=== PATIENT | male | born 1985 | race Caucasian/White ===

== ENCOUNTER 2020-03-05 16:54 | Outpatient (REF) | payer OTHER, SELFPAY | END 2020-03-05 16:55 | disposition home or self-care (01) | LOC: HO.LAB 16:54 | PROVIDERS: PCP Internal Medicine; Visit Provider Internal Medicine | DX: Z20.822 Contact with and (suspected) exposure to COVID-19 (principal) | CPT/HCPCS: 36415; C9803; U0003 ==

== ENCOUNTER 2020-03-16 15:34 | Outpatient (REF) | payer OTHER, SELFPAY | END 2020-03-16 15:35 | disposition home or self-care (01) | LOC: HO.LAB 15:34 | PROVIDERS: Visit Provider Internal Medicine | DX: Z20.822 Contact with and (suspected) exposure to COVID-19 (principal) | CPT/HCPCS: 36415; C9803; U0003 ==

== ENCOUNTER 2023-02-02 08:47 | Outpatient (AMB) | payer OTHER, SELFPAY ==
--- NOTE | 2023-02-02 08:50 | MHC.PC.OV ---
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 Accompanied by: Self / Same As Patient Allergies No Known Allergies Allergy (Verified 02/02/23 08:51) Medication List - Last Reconciled 02/02/23 by Ruth Ann Gaffney MD No Known Home Meds Tobacco use date assessed: 02/02/23 Dental Screening Dental Screen Date: 02/02/23 Did you have a dental visit in the last 12 months?: Yes Did you have a dental problem in the last 6 months where you did not have access to dental care?: No Was dental information given to patient?: Patient has dentist HPI Annual Physical HPI Details 37-year-old overweight male with ADD, generalized anxiety disorder and anemia last seen in March 2021 coming in for physical exam. states gets bronchitis Q year [facility] Medical History (Updated 02/02/23 @ 09:18 by Ruth Ann Gaffney MD) Leukopenia Attention deficit disorder Fatty liver Obesity (BMI 30-39.9) Generalized anxiety disorder Surgical History History of knee surgery Family History Mother Breast cancer Skin cancer Father No problems noted. Brother No problems noted. Brother Substance abuse Brother No problems noted. Sister No problems noted. Social History Housing: House Alcohol intake: never Patient Tobacco Use Status: Former Tobacco user Tobacco use type: Cigarette Years Smoked: 2003 e-Cigarette/Vaping Use: Never Used Second Hand Smoke Exposure: No service: No Current occupational status: employed Cognitive needs: No Hearing needs: No Vision needs: No Questionnaire PHQ-9 Over the last 2 weeks, how often have you been bothered by any of the following problems? 1. Little interest or pleasure in doing things: several days 2. Feeling down, depressed, or hopeless: several days 3. Trouble falling or staying asleep, or sleeping too much: more than half the days 4. Feeling tired or having little energy: not at all 5. Poor appetite or overeating: nearly every day 6. Feeling bad about yourself - or that you are a failure or have let yourself or your family down: more than half the days 7. Trouble concentrating on things, such as reading the newspaper or watching television: nearly every day 8. Moving or speaking so slowly that other people could have noticed. Or the opposite - being so fidgety or restless that you have been moving around a lot more than usual: more than half the days 9. Thoughts that you would be better off or of hurting yourself in some way: more than half the days Total score: 16 84002 - PHQ-9 Billing: Yes Source: Developed by Drs. Dejon Donohue, Jennifer Choi, Daniel Irene and colleagues, with an educational kimberly from [employer]. Thrive Questionnaire Date Thrive assessed: 02/02/23 What is your living situation today?: I have a steady place to live Within the past 12 months, did the food you bought not last and you didn't have the money to get more?: Never true Within the past 12 months, did you worry whether your food would run out before you got money to buy more?: Never true Do you have trouble paying for medicines?: No Do you have trouble getting transportation to medical appointments?: No Do you have trouble paying your heating and electricity bill?: No Do you have trouble taking care of your child, family member or friend?: No Do you have trouble with day-to-day activities such as bathing, preparing meals, shopping, managing finances, etc.?: No Are you currently unemployed and looking for a job?: No Are you interested in more education?: No Please select the resources that you would like help with: None Currently or been in a relationship where the following occur: no concerns reported AUDIT C Alcohol Use Questionnaire (AUDIT-C) 1. How often do you have a drink containing alcohol?: Never 3. How often do you have six or more drinks on one occasion?: Never Total Score: 0 CHRISTINA-7 AMB Questionnaire CHRISTINA-7 Date CHRISTINA - 7 assessed: 02/02/23 Feeling nervous, anxious, or on edge: 1 = Several days Not being able to stop or control worryin = Several days Worrying too much about different things: 1 = Several days Trouble relaxin = Several days Being so restless that it is hard to sit still: 1 = Several days Becoming easily annoyed or irritable: 1 = Several days Feeling afraid as if something awful might happen: 1 = Several days Total CHRISTINA-7 score (0-4 normal; 5-9 mild; 10-14 moderate; 15-21 severe): 7 Source: Developed by Drs. Dejon Donohue, Jennifer Choi, Daniel Irene and colleagues, with an educational kimberly from [employer]. CHRISTINA-7 Assessment Billing CHRISTINA-7 Assessment Tool: CHRISTINA-7 Assessment 75375 Review of Systems Const Denies poor appetite and Denies weakness Eyes Denies no additional complaints ENT Reports Normal hearing present, Denies dizziness, Denies nasal congestion, Denies tinnitus and Denies sore throat Card Denies chest pain, Denies syncope, Denies rapid heart rate and Denies dyspnea Resp Denies cough and Denies dyspnea GI Denies change in stool character, Reports constipation, Denies diarrhea, Denies nausea and Denies vomiting Denies dysuria and Denies urinary frequency Neuro Reports Normal hearing present, Denies confusion, Denies dizziness, Denies syncope and Denies weakness Psych Denies confusion Physical exam (Primary Care) Vital Signs: Last Vital Signs Pulse 51 02/02/23 08:51 BP 120/86 02/02/23 08:51 Pulse Ox 99 02/02/23 08:51 Oxygen Delivery Method Room Air 02/02/23 08:51 BMI result Body Mass Index 28.6 Tobacco/Smoking Status: Tobacco use Status Tobacco use date assessed 02/02/23 02/02/23 08:52 Patient Tobacco Use Status Former Tobacco user 02/02/23 08:52 Tobacco use type Cigarette 02/02/23 08:52 e-Cigarette/Vaping Use Never Used 02/02/23 08:52 PHQ-9: PHQ-9 Score PHQ-9: Total score 16 02/02/23 09:06 Thrive Assessment: Date of Thrive Assessment Date Thrive assessed 02/02/23 02/02/23 09:01 Currently or been in a relationship where the following occur: no concerns reported Const General: alert and awake; No confusion Orientation/consciousness: No confusion HENMT Head: Yes normocephalic Ears: external ears normal and TM's normal bilaterally Face and sinus: Yes normal facial exam Mouth: moist mucous membranes Throat: Yes tonsils normal Eyes Conjunctivae: conjunctivae normal Pupils: Equal, round and reactive pupils present and Pupil accommodation reflex normal Direct Ophthalmoscopy: normal light reflex Neck Neck: No lymphadenopathy Thyroid: Thyroid normal Chest Chest palpation & inspection: normal inspection of the chest Resp Effort & Inspection: normal respiratory effort and no audible wheezes Auscultation: clear to auscultation bilaterally, no crackles, no wheezes and lung sounds not diminished Cardio Rate: regular rate Rhythm: regular rhythm Peripheral pulses: radial pulses present and dorsalis pedis present GI Other: visual negative for any hemorrhoids Palpation (GI): no masses Auscultation: normal bowel sounds and normoactive bowel sounds Rectal Exam - Male: Yes deferred Male General Exam: Yes normal external exam Skin General skin exam: no rashes or lesions noted Rashes: no rashes Neuro General: deep tendon reflexes 2+ bilaterally and No confusion Cranial nerves: Yes Equal, round and reactive pupils present, Yes Midline tongue present, Yes Normal hearing present and Yes Ability to bilaterally elevate shoulders present Cognition (Neuro): normal cognition Gait exam (Neuro): Normal gait present Motor exam (neuro): 5/5 motor strength present throughout Deep tendon reflexes (DTR's): Right brachioradialis reflex intensity grade: 2+, Left brachioradialis reflex intensity grade: 2+, Right patellar reflex intensity grade: 2+ and Left patellar reflex intensity grade: 2+ Extrem General: No edema Office Procedures Flu Questionnaire Does the patient have a severe egg allergy?: No Does the patient have severe life threatening allergies?: No Does the patient have a fever or illness today?: No Has the patient ever had Guillain-Needham Syndrome?: No Has the patient ever had any past reaction to a flu shot?: No Immunizations flu vacc [id number] 6mos up(PF) 60 mcg(15 mcgx4)/0.5 mL IM syringe Performing Provider: Ruth Ann Gaffney MD [facility] Administered by: Marilynn Iglesias CMA on 02/02/23 09:27 Dose Route Admin Location Dispensed Lot Number Expiration Date [employer] 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 0.5 mL IM Left Deltoid 0.5 mL [id number] 08/16/23 [id number] [facility] VIS Given Date VIS Provided VIS Publication Date 02/02/23 Single Vaccine 20 Eligibility Eligibility Date Funding Source Not [facility] Eligible 02/02/23 Private Assessment and Plan Assessment & Plan (1) Annual physical exam: Code(s): Z00.00 - Encounter for general adult medical examination without abnormal findings (2) Overweight: Code(s): E66.3 - Overweight Plan: Diet and exercise (3) Anemia: Code(s): D64.9 - Anemia, unspecified Qualifiers: Anemia type: unspecified type Qualified Code(s): D64.9 - Anemia, unspecified Plan: Discussed about repeating the blood work (4) Attention deficit disorder: Comment: [facility] 07/26/2018 Code(s): F98.8 - Other specified behavioral and emotional disorders with onset usually occurring in childhood and adolescence Plan: Continue to follow-up with counseling and therapy (5) Fatty liver: Code(s): K76.0 - Fatty (change of) liver, not elsewhere classified Plan: Low-fat diet and exercise (6) Generalized anxiety disorder: Comment: [facility] therapy September 2019 Code(s): F41.1 - Generalized anxiety disorder Plan: Continue to follow-up with counseling and therapy (7) GERD (gastroesophageal reflux disease): Code(s): K21.9 - Gastro-esophageal reflux disease without esophagitis Plan: Avoid the foods that causes that usually spicy foods, tomato products, juices, coffee, soda and foods that your sensitive to. After eating do not lie down, allow 3-4 hours before in lie down. And keep the head of bed above 30 degrees to avoid the acid from going up. (8) Rectal bleed: Code(s): K62.5 - Hemorrhage of anus and rectum Plan: ? wiping too hard, deny constipation- sent in proctosol Orders: Orders Complete Blood Count Auto Diff Today D64.9 - Anemia, unspecified Reticulocyte Count Today D64.9 - Anemia, unspecified IRON PROFILE Today D64.9 - Anemia, unspecified Comprehensive Met. Panel Today K76.0 - Fatty (change of) liver, not elsewhere classified Free T4 (Free Thyroxine) Today K76.0 - Fatty (change of) liver, not elsewhere classified Thyroid Stimulating Hormone Today K76.0 - Fatty (change of) liver, not elsewhere classified Influenza [id number] Immunization Today Z23 - Encounter for immunization Ferritin Today D64.9 - Anemia, unspecified Vitamin B12 and Folate Today D64.9 - Anemia, unspecified Lipid Panel Today E78.00 - Pure hypercholesterolemia, unspecified, K76.0 - Fatty (change of) liver, not elsewhere classified Medications: New hydrocortisone 2.5% (Proctosol HC) 1 appl [place] BID-QID PRN 30 grams 0RF hemorrhoids K62.5 - Hemorrhage of anus and rectum Coding Level of Care Code Est Pt Prev Care 18-39y(25421) Diagnoses Annual physical exam Z00.00 Overweight E66.3 Anemia, unspecified type D64.9 Anemia type: unspecified type Attention deficit disorder F98.8 Fatty liver K76.0 Generalized anxiety disorder F41.1 GERD (gastroesophageal reflux disease) K21.9 Rectal bleed K62.5 Additional Codes CHRISTINA-7 Assessment Billing - CHRISTINA-7 Assessment Tool: CHRISTINA-7 Assessment 19067 ([id number])
[2023-02-02 08:51] VITALS: BP 120/86; PULSE 51; O2SAT 99; BMI 28.6
== END 2023-02-02 09:29 | disposition home or self-care (01) ==
PROVIDERS: PCP Internal Medicine; Visit Provider Internal Medicine
DX: Z00.00 Encounter for general adult medical examination without abnormal findings (principal); E66.3 Overweight; D64.9 Anemia, unspecified; Z23 Encounter for immunization; F98.8 Other specified behavioral and emotional disorders with onset usually occurring in childhood and adolescence; K76.0 Fatty (change of) liver, not elsewhere classified; F41.1 Generalized anxiety disorder; K21.9 Gastro-esophageal reflux disease without esophagitis; K62.5 Hemorrhage of anus and rectum
CPT/HCPCS: 90471; 90686; 96127; 99395

== ENCOUNTER 2023-03-19 15:02 | Outpatient (REF) | payer OTHER, SELFPAY ==
[2023-03-19 15:12] LABS: MANUAL DIFF FLAG NO
[2023-03-19 15:32] LABS: Basophils Absolute Auto 0.1 X10*3/uL (0.0-0.2); Basophils Percent Auto 1.3 % (0-2); Eosinophils Percent Auto 0.8 % (0-4); Hematocrit 37.4 % (42.0-52.0); Hemoglobin 12.9 g/dl (14.0-18.0); Imm Gran Abs Auto 0.01 X10*3/uL (0.00-0.03); Imm Gran Pct Auto 0.2 % (0.0-0.4); Immature Retic Fraction 4.7 % (2.3-13.4); Lymphocytes Absolute Auto 1.4 X10*3/uL (1.2-4.9); Lymphocytes Percent Auto 29.7 % (20-40); Mean Corpuscular HGB Conc 34.5 g/dl (31.0-36.0); Mean Corpuscular Hemoglobin 28.9 pg (27.0-33.0); Mean Corpuscular Volume 83.7 fL (80.0-98.0); Mean Platelet Volume 9.7 fL (9.4-12.4); Monocytes Absolute Auto 0.5 X10*3/uL (0.1-1.2); Monocytes Percent Auto 11.2 % (2-11); Neutrophils Absolute Auto 2.7 x10*3/uL (2.0-8.3); Neutrophils Percent Auto 56.8 % (45-73); Platelet Count 293 X10*3/uL (160-400); Red Blood Count 4.47 X10*6/uL (4.60-5.80); Red Cell Distribution Width 12.8 % (11.0-16.0); Retic HGB Equivalent 32.7 pg (30.0-35.0); Reticulocyte Percent 1.1 % (0.5-1.8); White Blood Count 4.7 X10*3/uL (4.8-10.8)
[2023-03-19 15:59] LABS: Alanine Aminotransferase 13 U/L (0-40); Albumin Level 4.5 g/dL (3.5-5.0); Alkaline Phosphatase 53 U/L (39-117); Anion Gap 10 (12-20); Aspartate Amino Transferase 17 U/L (5-37); Bilirubin Total 0.4 mg/dL (0.0-1.0); Blood Urea Nitrogen 15 mg/dL (9-16); Calcium 9.2 mg/dL (8.4-10.2); Carbon Dioxide 31 mmol/L (22-29); Chloride 103 mmol/L (96-108); Cholesterol 184 mg/dL (<200); Estimated Glomerular Filt Rate > 60; Glucose Random 84 mg/dL (60-115); HDL Cholesterol 56 mg/dL (>40); Iron 81 mcg/dL (45-160); LDL Cholesterol Calculated 121 mg/dL (<100); Percent Iron Saturation 30 % (15-50); Potassium 3.9 mmol/L (3.3-5.1); Sodium 140 mmol/L (135-145); Total Iron Binding Capacity 270 mcg/dL (228-428); Total Protein 7.3 g/dL (6.5-8.0); Triglycerides 35 mg/dL (<150); Unsaturated Iron Binding 189 ug/dL
[2023-03-19 16:14] LABS: Ferritin 99 ng/mL (20-250); Thyroid Stimulating Hormone 0.78 uIU/mL (0.32-4.0)
[2023-03-19 16:27] LABS: Folate 6.7 ng/mL (> or = 4.0); Vitamin B12 416 pg/mL (200-900)
== END 2023-03-19 15:03 | disposition home or self-care (01) ==
LOC: HO.LAB 15:02
PROVIDERS: PCP Internal Medicine; Visit Provider Internal Medicine
DX: D64.9 Anemia, unspecified (principal); K76.0 Fatty (change of) liver, not elsewhere classified; E78.00 Pure hypercholesterolemia, unspecified
CPT/HCPCS: 36415; 80053; 80061; 82607; 82728; 82746; 83540; 84439; 84443; 85025; 85045

== ENCOUNTER → 2023-04-15 11:22 | Outpatient (BNV) | payer OTHER, SELFPAY | PROVIDERS: PCP Internal Medicine; Referring Provider Internal Medicine; Visit Provider Internal Medicine Medical Oncology | DX: D64.9 Anemia, unspecified (principal) | CPT/HCPCS: 99204; 99213 ==

== ENCOUNTER 2023-05-07 15:34 | Outpatient (AMB) | payer OTHER, SELFPAY ==
[2023-05-07 15:38] VITALS: BP 122/64; PULSE 50; O2SAT 99; BMI 29.2
--- NOTE | 2023-05-07 15:38 | MHC.PC.OV ---
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 Last seen in January 2023. With anemia patient was referred to Hematology Oncology diagnosis of normochromic normocytic anemia most likely anemia of chronic disease. 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 [facility] Medical History (Updated 05/07/23 @ 15:50 by Ruth Ann Gaffney MD) Anemia Leukopenia Attention deficit disorder Fatty liver Obesity (BMI 30-39.9) Generalized anxiety disorder Surgical History (Updated 04/15/23 @ 16:35 by Natasha Burton MD) History of knee surgery Family History Mother Breast cancer Skin cancer Father No problems noted. Brother No problems noted. Brother Substance abuse Brother No problems noted. Sister No problems noted. Social History (Updated 04/15/23 @ 13:47 by Yahaira Palomares) Housing: House Alcohol intake: never Patient Tobacco Use Status: Former Tobacco user Tobacco use type: Cigarette Years Smoked: 2003 e-Cigarette/Vaping Use: Never Used Second Hand Smoke Exposure: No service: No Current occupational status: employed Cognitive needs: No Hearing needs: No Vision needs: No Questionnaire Thrive Questionnaire Date Thrive assessed: 05/07/23 AUDIT C Alcohol Use Questionnaire (AUDIT-C) 1. How often do you have a drink containing alcohol?: Never 3. How often do you have six or more drinks on one occasion?: Never Total Score: 0 CHRISTINA-7 AMB Questionnaire CHRISTINA-7 Date CHRISTINA - 7 assessed: 05/07/23 Source: Developed by Drs. Dejon Donohue, Jennifer Choi, Daniel Irene and colleagues, with an educational kimberly from [address]. Physical exam (Primary Care) Vital Signs: Last Vital Signs Pulse 50 05/07/23 15:38 BP 122/64 05/07/23 15:38 Pulse Ox 99 05/07/23 15:38 Oxygen Delivery Method Room Air 05/07/23 15:38 Care Plan Goal for BP management: Rectal area noted has subcentimeter mass no active bleeding. No tenderness BMI result Body Mass Index 29.2 Tobacco/Smoking Status: Tobacco use Status Tobacco use date assessed 05/07/23 05/07/23 15:39 Patient Tobacco Use Status Former Tobacco user 05/07/23 15:39 Tobacco use type Cigarette 05/07/23 15:39 e-Cigarette/Vaping Use Never Used 05/07/23 15:39 Thrive Assessment: Date of Thrive Assessment Date Thrive assessed 05/07/23 05/07/23 15:39 Const General: alert; No acute distress Eyes Conjunctivae: conjunctivae normal Resp Auscultation: clear to auscultation bilaterally Cardio Rate: regular rate Rhythm: regular rhythm GI Inspection: Yes normal to inspection Extrem General: Yes normal to inspection and No edema Assessment and Plan Assessment & Plan (1) Normochromic normocytic anemia: Code(s): D64.9 - Anemia, unspecified Plan: Patient has met with Hematology-Oncology. Will continue to monitor. (2) Rectal bleed: Code(s): K62.5 - Hemorrhage of anus and rectum Plan: Use the hemorrhoid cream Proctosol. Will resend (3) GERD (gastroesophageal reflux disease): Code(s): K21.9 - Gastro-esophageal reflux disease without esophagitis Plan: Avoid the foods that causes that usually spicy foods, tomato products, juices, coffee, soda and foods that your sensitive to. After eating do not lie down, allow 3-4 hours before in lie down. And keep the head of bed above 30 degrees to avoid the acid from going up. (4) Generalized anxiety disorder: Comment: [facility] therapy September 2019 Code(s): F41.1 - Generalized anxiety disorder Plan: Continue with counseling. (5) Hemorrhoid: Code(s): K64.9 - Unspecified hemorrhoids Plan: Hemorrhoid cream sent and advised to prevent being constipated. (6) Constipation: Code(s): K59.00 - Constipation, unspecified Plan: Fiber capsule sent. Three rules for constipation 1. Diet need to have a high fiber diet less of meat 2. Increase oral fluids 3. Exercise Medications: New psyllium husk (Fiber Therapy Laxative (psyllium husk)) 1.04 grams (2 x 0.52 gram) PO DAILY 60 caps 2RF K59.00 - Constipation, unspecified Refilled hydrocortisone 2.5% (Proctosol HC) 1 appl ID BID-QID PRN 30 grams 0RF hemorrhoids K62.5 - Hemorrhage of anus and rectum Coding Level of Care Code Est Pt Level 4 (92837) Diagnoses Normochromic normocytic anemia D64.9 Rectal bleed K62.5 GERD (gastroesophageal reflux disease) K21.9 Generalized anxiety disorder F41.1 Hemorrhoid K64.9 Constipation K59.00
== END 2023-05-07 15:56 | disposition home or self-care (01) ==
PROVIDERS: PCP Internal Medicine; Visit Provider Internal Medicine
DX: D64.9 Anemia, unspecified (principal); K62.5 Hemorrhage of anus and rectum; K21.9 Gastro-esophageal reflux disease without esophagitis; F41.1 Generalized anxiety disorder; K64.9 Unspecified hemorrhoids; K59.00 Constipation, unspecified
CPT/HCPCS: 99214

== ENCOUNTER 2023-08-31 15:21 | Outpatient (AMB) | payer BC, SELFPAY ==
[2023-08-31 15:25] VITALS: BP 122/70; PULSE 54; O2SAT 98; BMI 29.0
--- NOTE | 2023-08-31 15:25 | MHC.PC.OV ---
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 With the anemia patient continues to follow-up with Hematology-Oncology blood work has been in the normal range. Patient is doing good and states constipation has resolved and no more blood in the stools discussed about healthy diet more fiber less meat proteins not fried. [facility] Medical History (Updated 06/25/23 @ 14:08 by Natasha Burton MD) Anemia Leukopenia Attention deficit disorder Fatty liver Obesity (BMI 30-39.9) Generalized anxiety disorder Surgical History History of knee surgery Family History Mother Breast cancer Skin cancer Father No problems noted. Brother No problems noted. Brother Substance abuse Brother No problems noted. Sister No problems noted. Social History Housing: House Alcohol intake: never Patient Tobacco Use Status: Former Tobacco user Tobacco use type: Cigarette Years Smoked: 2003 e-Cigarette/Vaping Use: Never Used Second Hand Smoke Exposure: No service: No Current occupational status: employed Cognitive needs: No Hearing needs: No Vision needs: No Questionnaire PHQ-9 Over the last 2 weeks, how often have you been bothered by any of the following problems? 1. Little interest or pleasure in doing things: several days 2. Feeling down, depressed, or hopeless: several days 3. Trouble falling or staying asleep, or sleeping too much: more than half the days 4. Feeling tired or having little energy: not at all 5. Poor appetite or overeating: nearly every day 6. Feeling bad about yourself - or that you are a failure or have let yourself or your family down: more than half the days 7. Trouble concentrating on things, such as reading the newspaper or watching television: nearly every day 8. Moving or speaking so slowly that other people could have noticed. Or the opposite - being so fidgety or restless that you have been moving around a lot more than usual: more than half the days 9. Thoughts that you would be better off or of hurting yourself in some way: more than half the days Total score: 16 54751 - PHQ-9 Billing: Yes Source: Developed by Drs. Dejon Donohue, Jennifer Choi, Daniel Irene and colleagues, with an educational kimberly from [employer]. Thrive Questionnaire Date Thrive assessed: 05/07/23 AUDIT C Alcohol Use Questionnaire (AUDIT-C) 1. How often do you have a drink containing alcohol?: Never 3. How often do you have six or more drinks on one occasion?: Never Total Score: 0 CHRISTINA-7 AMB Questionnaire CHRISTINA-7 Date CHRISTINA - 7 assessed: 05/07/23 Source: Developed by Drs. Dejon Donohue, Jennifer Choi, Daniel Irene and colleagues, with an educational kimberly from [employer]. Physical exam (Primary Care) Vital Signs: Last Vital Signs Pulse 54 08/31/23 15:25 BP 122/70 08/31/23 15:25 Pulse Ox 98 08/31/23 15:25 Oxygen Delivery Method Room Air 08/31/23 15:25 BMI result Body Mass Index 29.0 Tobacco/Smoking Status: Tobacco use Status Tobacco use date assessed 05/07/23 08/31/23 15:26 Patient Tobacco Use Status Former Tobacco user 08/31/23 15:26 Tobacco use type Cigarette 08/31/23 15:26 e-Cigarette/Vaping Use Never Used 08/31/23 15:26 PHQ-9: PHQ-9 Score PHQ-9: Total score 16 08/31/23 15:26 Thrive Assessment: Date of Thrive Assessment Date Thrive assessed 05/07/23 08/31/23 15:26 Const General: alert; No acute distress Eyes Conjunctivae: conjunctivae normal Resp Auscultation: clear to auscultation bilaterally Cardio Rate: regular rate Rhythm: regular rhythm GI Inspection: Yes normal to inspection Extrem General: Yes normal to inspection and No edema Assessment and Plan Assessment & Plan (1) Constipation: Code(s): K59.00 - Constipation, unspecified Plan: Three rules for constipation 1. Diet need to have a high fiber diet less of meat 2. Increase oral fluids 3. Exercise states resolved (2) Hemorrhoid: Code(s): K64.9 - Unspecified hemorrhoids Plan: Patient was given fiber to help with constipation- resolved (3) Normochromic normocytic anemia: Code(s): D64.9 - Anemia, unspecified Plan: Resolved (4) GERD (gastroesophageal reflux disease): Code(s): K21.9 - Gastro-esophageal reflux disease without esophagitis Plan: Avoid the foods that causes that usually spicy foods, tomato products, juices, coffee, soda and foods that your sensitive to. After eating do not lie down, allow 3-4 hours before in lie down. And keep the head of bed above 30 degrees to avoid the acid from going up. (5) Overweight: Code(s): E66.3 - Overweight Plan: Diet and exercise (6) Generalized anxiety disorder: Comment: [facility] therapy September 2019 Code(s): F41.1 - Generalized anxiety disorder Plan: Stable Coding Level of Care Code Est Pt Level 4 (91673) Diagnoses Constipation K59.00 Hemorrhoid K64.9 Normochromic normocytic anemia D64.9 GERD (gastroesophageal reflux disease) K21.9 Overweight E66.3 Generalized anxiety disorder F41.1
== END 2023-08-31 16:09 | disposition home or self-care (01) ==
PROVIDERS: PCP Internal Medicine; Visit Provider Internal Medicine
DX: K59.00 Constipation, unspecified (principal); K64.9 Unspecified hemorrhoids; D64.9 Anemia, unspecified; K21.9 Gastro-esophageal reflux disease without esophagitis; E66.3 Overweight; F41.1 Generalized anxiety disorder
CPT/HCPCS: 99214

== ENCOUNTER 2024-02-04 16:04 | Outpatient (AMB) | payer BC, SELFPAY ==
--- NOTE | 2024-02-04 16:07 | MHC.PC.OV ---
Vital Signs 02/04/24 16:08 Height 5 ft 8 in Weight 198 lb 6 oz BMI 30.2 BP 118/60 Blood Pressure Location Lt brachial Position Sitting Pulse 56 Pulse Source Pulse Oximeter Pulse Oximetry (%) 96 Oxygen Delivery Method Room Air Intake Visit Reasons: Annual Exam Intake Note: Patient is here today for a physical. Photographic Plate Maker Required: No Chief Executive Officer: Not Required per policy Accompanied by: Self / Same As Patient Allergies No Known Allergies Allergy (Verified 02/04/24 16:08) Medication List - Last Reconciled 02/04/24 by Ruth Ann Gaffney MD hydrocortisone 2.5% (Proctosol HC) 1 appl ND BID-QID PRN psyllium husk (Fiber Therapy Laxative (psyllium husk)) 1.04 grams (2 x 0.52 gram) PO DAILY Tobacco use date assessed: 02/04/24 Dental Screening Dental Screen Date: 05/07/23 [facility] Annual Exam HPI Details The patient is a 38-year-old male presenting for a routine physical examination. He has a history of depression and previously diagnosed fatty liver. The patient reports that his depression is attributed to childhood trauma. He is currently seeing a counselor regularly but mentions that his ability to manage his depression is limited by the copayment required for sessions. He describes ongoing struggles with his condition but attempts to manage it through therapy. He reports no issues with dizziness, nausea, vomiting, passing out, chest pains, or unusual bowel or urinary symptoms. He experiences heartburn occasionally when overeating. The patient has gained seven pounds since the last visit, which took place in August. This weight gain is a concern due to the associated increase in his body mass index, especially given his history of fatty liver. He reports a healthy lifestyle, including daily exercise. He denies the use of tobacco, alcohol, or recreational drugs. There is no mention of medications, either prescription or [id number]. The patient's dietary habits and interventions to promote better health, like hydration and maintaining an active lifestyle, were discussed but not detailed. - Discussed weight management strategies due to increased BMI and history of fatty liver - Discussed getting an annual flu vaccination, though not administered in the visit - Exercise: Attempts to exercise daily - Substance Use: Denies smoking, alcohol, and recreational drug use - Family Status: Mentioned family history in terms of mother requiring care - Gastrointestinal: Reports occasional heartburn when overeating - Constitutional: Denies dizziness, nausea, vomiting, passing out - Respiratory: Denies any shortness of breath or chest pains - Genitourinary: Denies abnormal urinary symptoms; wakes no times at night to urinate [facility] Medical History (Updated 02/04/24 @ 16:43 by Ruth Ann Gaffney MD) Anemia Leukopenia Attention deficit disorder Fatty liver Obesity (BMI 30-39.9) Generalized anxiety disorder Surgical History History of knee surgery Family History Mother Breast cancer Skin cancer Father No problems noted. Brother No problems noted. Brother Substance abuse Brother No problems noted. Sister No problems noted. Social History Housing: House Alcohol intake: never Patient Tobacco Use Status: Former Tobacco user Tobacco use type: Cigarette Years Smoked: 2003 e-Cigarette/Vaping Use: Never Used Second Hand Smoke Exposure: Yes service: No Current occupational status: employed Cognitive needs: No Hearing needs: No Vision needs: No Questionnaire PHQ-9 Over the last 2 weeks, how often have you been bothered by any of the following problems? 1. Little interest or pleasure in doing things: several days 2. Feeling down, depressed, or hopeless: several days 3. Trouble falling or staying asleep, or sleeping too much: several days 4. Feeling tired or having little energy: not at all 5. Poor appetite or overeating: nearly every day 6. Feeling bad about yourself - or that you are a failure or have let yourself or your family down: more than half the days 7. Trouble concentrating on things, such as reading the newspaper or watching television: several days 8. Moving or speaking so slowly that other people could have noticed. Or the opposite - being so fidgety or restless that you have been moving around a lot more than usual: more than half the days 9. Thoughts that you would be better off or of hurting yourself in some way: several days Total score: 12 Depression Screening Interpretation: Positive Depression Screening Done: Yes Source: Developed by Drs. Jennifer Elizabeth, Daniel Irene and colleagues, with an educational kimberly from [employer]. Thrive Questionnaire Date Thrive assessed: 02/04/24 I am a: Patient What is your living situation today?: I have a steady place to live Within the past 12 months, did the food you bought not last and you didn't have the money to get more?: Never true Within the past 12 months, did you worry whether your food would run out before you got money to buy more?: Never true Do you have trouble paying for medicines?: No Do you have trouble getting transportation to medical appointments?: No Do you have trouble paying your heating and electricity bill?: No Do you have trouble taking care of your child, family member or friend?: No Do you have trouble with day-to-day activities such as bathing, preparing meals, shopping, managing finances, etc.?: No Are you currently unemployed and looking for a job?: No Are you interested in more education?: Yes Please select the resources that you would like help with: None Currently or been in a relationship where the following occur: No concerns reported THRIVE Score: 0 AUDIT C Alcohol Use Questionnaire (AUDIT-C) 1. How often do you have a drink containing alcohol?: Never Total Score: 0 CHRISTINA-7 AMB Questionnaire CHRISTINA-7 Date CHRISTINA - 7 assessed: 02/04/24 Feeling nervous, anxious, or on edge: 3 = Nearly every day Not being able to stop or control worryin = More than half the days Worrying too much about different things: 2 = More than half the days Trouble relaxin = Several days Being so restless that it is hard to sit still: 2 = More than half the days Becoming easily annoyed or irritable: 2 = More than half the days Feeling afraid as if something awful might happen: 2 = More than half the days Total HCRISTINA-7 score (0-4 normal; 5-9 mild; 10-14 moderate; 15-21 severe): 14 Source: Developed by Jennifer Isabel, Daniel Irene and colleagues, with an educational kimberly from [employer]. Review of Systems Const Denies poor appetite and Denies weakness Eyes Denies no additional complaints ENT Reports Normal hearing present, Denies dizziness, Denies nasal congestion, Denies tinnitus and Denies sore throat Card Denies chest pain, Denies syncope, Denies rapid heart rate and Denies dyspnea Resp Denies cough and Denies dyspnea GI Denies change in stool character, Reports constipation, Denies diarrhea, Denies nausea and Denies vomiting Denies dysuria and Denies urinary frequency Neuro Reports Normal hearing present, Denies confusion, Denies dizziness, Denies syncope and Denies weakness Psych Denies confusion Physical exam (Primary Care) Vital Signs: Last Vital Signs Pulse 56 02/04/24 16:08 BP 118/60 02/04/24 16:08 Pulse Ox 96 02/04/24 16:08 Oxygen Delivery Method Room Air 02/04/24 16:08 BMI result Body Mass Index 30.2 Tobacco/Smoking Status: Tobacco use Status Tobacco use date assessed 02/04/24 02/04/24 16:11 Patient Tobacco Use Status Former Tobacco user 02/04/24 16:11 Tobacco use type Cigarette 02/04/24 16:11 e-Cigarette/Vaping Use Never Used 02/04/24 16:11 PHQ-9: PHQ-9 Score PHQ-9: Total score 12 02/04/24 16:11 Depression Screening Interpretation: Positive Thrive Assessment: Date of Thrive Assessment Date Thrive assessed 02/04/24 02/04/24 16:11 Currently or been in a relationship where the following occur: No concerns reported Const General: alert and awake; No confusion Orientation/consciousness: No confusion HENMT Other: impacted cerumen bilateral Head: Yes normocephalic Ears: external ears normal Face and sinus: Yes normal facial exam Mouth: moist mucous membranes Throat: Yes tonsils normal Eyes Conjunctivae: conjunctivae normal Pupils: Equal, round and reactive pupils present and Pupil accommodation reflex normal Direct Ophthalmoscopy: normal light reflex Neck Neck: No lymphadenopathy Thyroid: Thyroid normal Chest Chest palpation & inspection: normal inspection of the chest Resp Effort & Inspection: normal respiratory effort and no audible wheezes Auscultation: clear to auscultation bilaterally, no crackles, no wheezes and lung sounds not diminished Cardio Rate: regular rate Rhythm: regular rhythm Peripheral pulses: radial pulses present and dorsalis pedis present GI Other: visual exam begative Palpation (GI): no masses Auscultation: normal bowel sounds and normoactive bowel sounds Rectal Exam - Male: Yes deferred Male General Exam: Yes normal external exam Skin General skin exam: no rashes or lesions noted Rashes: no rashes Neuro General: deep tendon reflexes 2+ bilaterally and No confusion Cranial nerves: Yes Equal, round and reactive pupils present, Yes Midline tongue present, Yes Normal hearing present and Yes Ability to bilaterally elevate shoulders present Cognition (Neuro): normal cognition Gait exam (Neuro): Normal gait present Motor exam (neuro): 5/5 motor strength present throughout Deep tendon reflexes (DTR's): Right brachioradialis reflex intensity grade: 2+, Left brachioradialis reflex intensity grade: 2+, Right patellar reflex intensity grade: 2+ and Left patellar reflex intensity grade: 2+ Extrem General: No edema Office Procedures Cerumen Removal From which ear canal was the cerumen removed: bilateral Removal: otoscope w/curette and cerumen loop/spoon Notes: patient tolerated procedure well, no complications and ear canal clear [id number] Wax Removal by Spoon/Curette Coding Level of Care Code Est Pt Prev Care [id number]) Diagnoses Annual physical exam Z00.00 Attention deficit disorder F98.8 Generalized anxiety disorder F41.1 Obesity (BMI 30-39.9) E66.9 Fatty liver K76.0 Gastroesophageal reflux disease without esophagitis K21.9 Esophagitis presence: without esophagitis Impacted cerumen of both ears H61.23 CPT Codes Office Procedure - CPT: 97207-Kku Wax Removal by Spoon/Curette ([id number]) Assessment & Plan Assessment & Plan (1) Annual physical exam: Code(s): Z00.00 - Encounter for general adult medical examination without abnormal findings Category: Medical Plan: Patient is advised to eat healthy, keep well hydrated, keep active and have adequate sleep. (2) Attention deficit disorder: Comment: [facility] 07/26/2018 Code(s): F98.8 - Other specified behavioral and emotional disorders with onset usually occurring in childhood and adolescence Category: Medical Plan: Continue to follow-up with counseling (3) Generalized anxiety disorder: Comment: [facility] therapy September 2019 Code(s): F41.1 - Generalized anxiety disorder Category: Medical Plan: Continue with counseling and therapy (4) Obesity (BMI 30-39.9): Code(s): E66.9 - Obesity, unspecified Category: Medical Plan: Diet and exercise (5) Fatty liver: Code(s): K76.0 - Fatty (change of) liver, not elsewhere classified Category: Medical Plan: Patient is advised low-fat diet and exercise (6) GERD (gastroesophageal reflux disease): Code(s): K21.9 - Gastro-esophageal reflux disease without esophagitis Category: Medical Qualifiers: Esophagitis presence: without esophagitis Qualified Code(s): K21.9 - Gastro-esophageal reflux disease without esophagitis Plan: Avoid the foods that causes that usually spicy foods, tomato products, juices, coffee, soda and foods that your sensitive to. After eating do not lie down, allow 3-4 hours before in lie down. And keep the head of bed above 30 degrees to avoid the acid from going up. (7) Impacted cerumen of both ears: Code(s): H61.23 - Impacted cerumen, bilateral Category: Medical Plan: scoop used , no irrigation TM intact Plan - Continue counseling and therapy sessions to manage depression - Environmental Health And Safety Leader on maintaining a healthy diet and regular exercise to manage weight and fatty liver - Evaluate and consider strategies to manage the financial impact of therapy sessions, due to increased copay - Monitor for any symptoms that may require intervention related to depression or fatty liver During this visit, we discussed the patient's current health status, including the noted weight gain and its potential implications, given his history of fatty liver. I advised the patient on the importance of managing his weight through diet and exercise to mitigate the risk of further liver complications. The potential for adjusting financial planning regarding his therapy copayment was also covered, though solutions were limited within the scope of our discussion. We reviewed the management of heartburn, reinforcing the need to avoid overeating as a preventive measure. Regarding immunizations, we discussed the importance of the flu shot, though the patient opted not to receive it during this visit. The suggestion for a tetanus booster, as it had been several years since the last dose, was made for future consideration. We addressed the continuation of mental health counseling, emphasizing its role in managing his depression. - Continue daily exercise and adhere to a healthy, balanced diet - Monitor heartburn and avoid overeating - Consider rescheduling for flu and tetanus vaccines at a later date - Maintain regular therapy sessions, reach out if financial adjustments can be made for copayments - Contact our office if experiencing any new or worsening symptoms of depression or any other health concerns
[2024-02-04 16:08] VITALS: BP 118/60; PULSE 56; O2SAT 96; BMI 30.2
== END 2024-02-04 16:48 | disposition home or self-care (01) ==
PROVIDERS: PCP Internal Medicine; Visit Provider Internal Medicine
DX: Z00.00 Encounter for general adult medical examination without abnormal findings (principal); F98.8 Other specified behavioral and emotional disorders with onset usually occurring in childhood and adolescence; E66.9 Obesity, unspecified; Z68.30 Body mass index [BMI] 30.0-30.9, adult; F41.1 Generalized anxiety disorder; K76.0 Fatty (change of) liver, not elsewhere classified; K21.9 Gastro-esophageal reflux disease without esophagitis; H61.23 Impacted cerumen, bilateral

== ENCOUNTER → 2024-02-04 16:04 | Outpatient (BNVA) | payer BC, SELFPAY | PROVIDERS: PCP Internal Medicine; Visit Provider Internal Medicine | DX: Z00.01 Encounter for general adult medical examination with abnormal findings (principal); H61.23 Impacted cerumen, bilateral; F98.8 Other specified behavioral and emotional disorders with onset usually occurring in childhood and adolescence; F41.1 Generalized anxiety disorder; K76.0 Fatty (change of) liver, not elsewhere classified; K21.9 Gastro-esophageal reflux disease without esophagitis; E66.9 Obesity, unspecified; Z68.30 Body mass index [BMI] 30.0-30.9, adult | CPT/HCPCS: 69210; 96127 ==

== ENCOUNTER 2025-02-06 15:53 | Outpatient (AMB) | payer BC, SELFPAY ==
[2025-02-06 16:13] VITALS: BP 110/78; PULSE 54; O2SAT 98; BMI 29.6
--- NOTE | 2025-02-06 16:13 | A.OFFPC_ITS ---
Vital Signs 02/06/25 16:13 Height 5 ft 8 in Weight 195 lb BMI 29.6 BP 110/78 Blood Pressure Location Lt brachial Position Sitting Pulse 54 Pulse Source Pulse Oximeter Pulse Oximetry (%) 98 Oxygen Delivery Method Room Air Intake Visit Reasons: pe Intake Note: Patient is here today for a physical. 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: Not Required per policy Accompanied by: Self / Same As Patient Allergies No Known Allergies Allergy (Verified 02/06/25 16:13) Medication List - Last Reconciled 02/06/25 by Ruth Ann Gaffney MD hydrocortisone 2.5% (Proctosol HC) 1 appl OR BID-QID PRN psyllium husk (Fiber Therapy Laxative (psyllium husk)) 1.04 grams (2 x 0.52 gram) PO DAILY Tobacco use date assessed: 02/06/25 Dental Screening Dental Screen Date: 02/06/25 Did you have a dental visit in the last 12 months?: Yes Did you have a dental problem in the last 6 months where you did not have access to dental care?: No Was dental information given to patient?: Patient has dentist HPI HPI Comments History of Present Illness Details History of Present Illness The patient is a 39-year-old male presenting for an annual physical examination. He has a history of generalized anxiety disorder, for which he receives counseling but takes no medications, fatty liver disease, attention deficit disorder, and a past history of rectal bleeding. He reports weekly heartburn, which he associates with eating too much. His last comprehensive blood work was in June 2023, which showed a normal blood count, electrolytes, renal function, blood sugar, and liver function. His last cholesterol test was in March 2023, with an LDL of 121 and triglycerides of 35. The patient reports slight back and wrist pain that started in September after he overexerted himself during exercise. He has had a 3-pound weight loss since his last visit. Past medical history is negative for new diagnoses or surgeries since his last visit. Family history is notable for a mother with breast cancer and skin cancer, but no family history of heart attacks. He does not drink alcohol, is a former smoker, and denies recreational drug use. He takes no prescription or clty-[id number]-[id number] medications or vitamins. Health Maintenance - Wellness: Advised on a low-fat diet an d exercise. - Labs: Last labs in June 2023 were elicia l, including CBC, electrolytes, renal function, glucose, and liver function. - Lipids: Last cholesterol test in 2023 showed an LDL of 121 and triglycerides of 35. - Lab Monitoring: The patient opted to s kip repeat lab work this year. - Immunizations: The patient is due for a tetanus shot (last in 2013) and an annual influenza vaccine. - Immunizations Declined: The patient de clined both the tetanus and influenza vaccines during this visit. - Vision: Recommended a routine eye exam every two years. - Injury Prevention: Advised to be caref ul with exercise and avoid overexertion. 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 - Substance Use: He denies drinking alco hol or using recreational drugs. - Tobacco Use: He is a former smoker and denies current use. - Exercise: He runs for regular exercise . - Diet and Nutrition: He tries to drink a lot of water daily. - Weight Management: He has lost 3 pound s since his last visit. Results - Labs (June 2023): Blood count, electrol ytes, renal function, blood sugar, and liver function were all normal. - Labs (March 2023): LDL was 121, and triglycerides were 35. [facility] Medical History (Updated 02/04/24 @ 16:43 by Ruth Ann Gaffney MD) Anemia Leukopenia Attention deficit disorder Fatty liver Obesity (BMI 30-39.9) Generalized anxiety disorder Surgical History History of knee surgery Family History Mother Breast cancer Skin cancer Father No problems noted. Brother No problems noted. Brother Substance abuse Brother No problems noted. Sister No problems noted. Social History Housing: House Alcohol intake: never Patient Tobacco Use Status: Former Tobacco user Tobacco use type: Cigarette Years Smoked: 2003 e-Cigarette/Vaping Use: Never Used Second Hand Smoke Exposure: Yes service: No Current occupational status: employed Cognitive needs: No Hearing needs: No Vision needs: No Questionnaire PHQ-9 Over the last 2 weeks, how often have you been bothered by any of the following problems? 1. Little interest or pleasure in doing things: several days 2. Feeling down, depressed, or hopeless: several days 3. Trouble falling or staying asleep, or sleeping too much: several days 4. Feeling tired or having little energy: several days 5. Poor appetite or overeating: several days 6. Feeling bad about yourself - or that you are a failure or have let yourself or your family down: several days 7. Trouble concentrating on things, such as reading the newspaper or watching television: several days 8. Moving or speaking so slowly that other people could have noticed. Or the opposite - being so fidgety or restless that you have been moving around a lot more than usual: several days 9. Thoughts that you would be better off or of hurting yourself in some way: several days Total score: 9 Source: Developed by Drs. Dejon Donohue, Jennifer Choi, Daniel Irene and colleagues, with an educational kimberly from [employer]. Thrive Questionnaire Date Thrive assessed: 02/06/25 I am a: Patient What is your living situation today?: I have a steady place to live Within the past 12 months, did the food you bought not last and you didn't have the money to get more?: Never true Within the past 12 months, did you worry whether your food would run out before you got money to buy more?: Never true Do you have trouble paying for medicines?: No Do you have trouble getting transportation to medical appointments?: No Do you have trouble paying your heating and electricity bill?: No Do you have trouble taking care of your child, family member or friend?: No Do you have trouble with day-to-day activities such as bathing, preparing meals, shopping, managing finances, etc.?: No Are you currently unemployed and looking for a job?: No Are you interested in more education?: Yes Please select the resources that you would like help with: None Currently or been in a relationship where the following occur: No concerns reported THRIVE Score: 0 AUDIT C Alcohol Use Questionnaire (AUDIT-C) 1. How often do you have a drink containing alcohol?: Never 3. How often do you have six or more drinks on one occasion?: Never Total Score: 0 CHRISTINA-7 AMB Questionnaire CHRISTINA-7 Date CHRISTINA - 7 assessed: 02/06/25 Feeling nervous, anxious, or on edge: 1 = Several days Not being able to stop or control worryin = Several days Worrying too much about different things: 1 = Several days Trouble relaxin = Several days Being so restless that it is hard to sit still: 1 = Several days Becoming easily annoyed or irritable: 1 = Several days Feeling afraid as if something awful might happen: 1 = Several days Total CHRISTINA-7 score (0-4 normal; 5-9 mild; 10-14 moderate; 15-21 severe): 7 Source: Developed by Drs. Dejon Donohue, Jennifer Choi, Daniel Irene and colleagues, with an educational kimberly from [employer]. Review of Systems Narrative Review of Systems - Constitutional: Denies fever. - HEENT: Denies hearing problems or dysphagia. He is unsure when his last vision test was. - Cardiovascular: Denies chest pain, heaviness, or discomfort, even with exertion. - Respiratory: Denies dyspnea at rest or with exertion. - Gastrointestinal: Reports weekly heartburn, triggered by overeating. Denies nausea, vomiting, constipation, or diarrhea. - Genitourinary: Denies dysuria and reports 0 episodes of nocturia. - Musculoskeletal: Reports slight back pain and wrist pain since September, which started after exercise. - Neurological: Denies syncope or dizziness. - Allergic/Immunologic: Denies medication allergies. Const Denies poor appetite and Denies weakness Eyes Denies no additional complaints ENT Reports Normal hearing present, Denies dizziness, Denies nasal congestion, Denies tinnitus and Denies sore throat Card Denies chest pain, Denies syncope, Denies rapid heart rate and Denies dyspnea Resp Denies cough and Denies dyspnea GI Denies change in stool character, Reports constipation, Denies diarrhea, Denies nausea and Denies vomiting Denies dysuria and Denies urinary frequency Neuro Reports Normal hearing present, Denies confusion, Denies dizziness, Denies syncope and Denies weakness Psych Denies confusion Physical exam (Primary Care) Vital Signs: Last Vital Signs Pulse 54 02/06/25 16:13 BP 110/78 02/06/25 16:13 Pulse Ox 98 02/06/25 16:13 Oxygen Delivery Method Room Air 02/06/25 16:13 BMI result Body Mass Index 29.6 Tobacco/Smoking Status: Tobacco use Status Tobacco use date assessed 02/06/25 02/06/25 16:14 Patient Tobacco Use Status Former Tobacco user 02/06/25 16:14 Tobacco use type Cigarette 02/06/25 16:14 e-Cigarette/Vaping Use Never Used 02/06/25 16:14 PHQ-9: PHQ-9 Score PHQ-9: Total score 9 02/06/25 16:36 Thrive Assessment: Date of Thrive Assessment Date Thrive assessed 02/06/25 02/06/25 16:14 Currently or been in a relationship where the following occur: No concerns reported Narrative Physical Exam General: Cooperative, healthy appearing, comfortable, no acute distress and well developed Orientation: Patient oriented x3 Limitations: No limitations Head: Normal to inspection Ears: Hearing grossly normal bilaterally Nose: Normal external nose present Face and sinus: Normal facial exam Eyes: Appearance normal, both eyes and all related structures Neck: Normal visual inspection and Yes full ROM Respiratory: Normal respiratory effort and able to speak in complete sentences. Clear to auscultation bilaterally Cardiovascular: Regular rate and rhythm. Normal S1 and S2 GI: Normal to inspection. Soft to palpation and nontender Skin: No rashes or lesions noted Neuro: Patient oriented x3 Extremities: Normal to inspection, slight back pain starting in September due to exercise, slight wrist pain noted. Const General: No confusion Orientation/consciousness: No confusion HENMT Head: Yes normocephalic Ears: external ears normal and TM's normal bilaterally Face and sinus: Yes normal facial exam Mouth: moist mucous membranes Throat: Yes tonsils normal Eyes Conjunctivae: conjunctivae normal Pupils: Equal, round and reactive pupils present and Pupil accommodation reflex normal Direct Ophthalmoscopy: normal light reflex Neck Neck: No lymphadenopathy Thyroid: Thyroid normal Chest Chest palpation & inspection: normal inspection of the chest Resp Effort & Inspection: normal respiratory effort and no audible wheezes Auscultation: clear to auscultation bilaterally, no crackles, no wheezes and lung sounds not diminished Cardio Rate: regular rate Rhythm: regular rhythm Peripheral pulses: radial pulses present and dorsalis pedis present GI Palpation (GI): no masses Auscultation: normal bowel sounds and normoactive bowel sounds Rectal Exam - Male: Yes deferred Skin General skin exam: no rashes or lesions noted Rashes: no rashes Neuro General: No confusion Cranial nerves: Yes Equal, round and reactive pupils present and Yes Normal hearing present Cognition (Neuro): normal cognition Gait exam (Neuro): Normal gait present Motor exam (neuro): 5/5 motor strength present throughout Deep tendon reflexes (DTR's): Right brachioradialis reflex intensity grade: 2+, Left brachioradialis reflex intensity grade: 2+, Right patellar reflex intensity grade: 2+ and Left patellar reflex intensity grade: 2+ Extrem General: No edema Coding Level of Care Code Est Pt Prev Care 40-64y(12309) Diagnoses Annual physical exam Z00.00 Fatty liver K76.0 Gastroesophageal reflux disease without esophagitis K21.9 Esophagitis presence: without esophagitis Overweight E66.3 Generalized anxiety disorder F41.1 Assessment & Plan Assessment & Plan (1) Annual physical exam: Code(s): Z00.00 - Encounter for general adult medical examination without abnormal findings Category: Medical Plan: Patient is advised to eat healthy, keep well hydrated, keep active and have adequate sleep. (2) Fatty liver: Code(s): K76.0 - Fatty (change of) liver, not elsewhere classified Category: Medical Plan: Low-fat diet and exercise (3) GERD (gastroesophageal reflux disease): Code(s): K21.9 - Gastro-esophageal reflux disease without esophagitis Category: Medical Qualifiers: Esophagitis presence: without esophagitis Qualified Code(s): K21.9 - Gastro-esophageal reflux disease without esophagitis Plan: Avoid the foods that causes that usually spicy foods, tomato products, juices, coffee, soda and foods that your sensitive to. After eating do not lie down, allow 3-4 hours before in lie down. And keep the head of bed above 30 degrees to avoid the acid from going up. (4) Overweight: Code(s): E66.3 - Overweight Category: Medical Plan: Diet and exercise (5) Generalized anxiety disorder: Comment: CHD therapy September 2019 Code(s): F41.1 - Generalized anxiety disorder Category: Medical Plan: Stable Plan Plan Patient was informed and verbally consented to the use of an ambient scribe for clinic note documentation during this visit. 1. Annual Physical Examination The patient is a 39-year-old male who is generally healthy. He was advised on continued lifestyle modifications including a low-fat diet and exercise. His immunization status was reviewed, noting he is due for tetanus and influenza vaccines, which he declined at this time. A discussion was held regarding lab monitoring, and the patient opted to forgo repeat blood work this year. He was advised to have a vision exam every two years. Plan to follow up in one year or sooner if any issues arise. 2. Gastroesophageal Reflux Disease The patient reports weekly heartburn, often triggered by overeating. The patient was counseled on the potential long-term complications of frequent acid reflux, such as changes to the esophageal lining. He was advised to focus on preventative measures, primarily through dietary modifications. 3. Generalized Anxiety Disorder The patient has a history of CHRISTINA and is stable. He continues to engage in counseling services and is not taking any psychotropic medications. He will continue with his current management. 4. Hyperlipidemia The patient's last lipid panel in March 2023 revealed an LDL of 121. Man agement consists of lifestyle modification with a low-fat diet and exercise. The patient declined repeat lab testing at this visit. 5. Musculoskeletal Pain The patient reports slight back and wrist pain that began in September after overexerting himself during exercise. He declined any diagnostic workup, such as X-rays. He was counseled to be careful with physical activity and to avoid overdoing it to prevent further injury. Discussion Notes I reviewed the patient's generally good health status, noting his recent weight loss and good blood pressure. We discussed his weekly heartburn, and I explained the importance of prevention to avoid potential long-term esophageal complications. We discussed his lab history, noting the LDL of 121 from last year, and he opted to skip repeat labs at this time. I informed him that he is due for a tetanus shot and the annual flu vaccine; he declined both today, and I advised him on precautions for the flu season. I also recommended a biennial eye exam for routine screening. In regards to his recent back and wrist pain from exercise, he declined an X-ray workup, and I counseled him on avoiding overexertion. I advised a follow-up visit in one year or sooner if any new problems arise. Patient Instructions - Continue with your low-fat diet and exercise routine. - To prevent heartburn, try to avoid eating too much at one time, as frequent acid can damage your throat over time. - You are due for a flu shot and a tetanus shot. Be careful during flu season, which usually ends in May. - It is recommended to get your eyes checked by an eye doctor every two years. - Be careful not to push yourself too hard during exercise to prevent injuries like the back and wrist pain you have been having. - Please schedule a follow-up appointment in one year for your next annual check-up, or call us sooner if you have any problems.
== END 2025-02-06 16:49 | disposition home or self-care (01) ==
LOC: HO.HMCH 15:54
PROVIDERS: PCP Internal Medicine; Visit Provider Internal Medicine
DX: Z00.00 Encounter for general adult medical examination without abnormal findings (principal); K76.0 Fatty (change of) liver, not elsewhere classified; K21.9 Gastro-esophageal reflux disease without esophagitis; E66.3 Overweight; F41.1 Generalized anxiety disorder